=== PATIENT | female | born 1990 | race Caucasian/White ===

== ENCOUNTER 2024-05-13 09:44 | Outpatient (CLI) | payer BC, SELFPAY ==
[2024-05-15 05:23] LABS: HPV Source Cervical; HPV, High Risk by TMA Not Detected
== END 2024-05-13 09:45 | disposition home or self-care (01) ==
PROVIDERS: Visit Provider Obstetrics & Gynecology
DX: Z01.419 Encounter for gynecological examination (general) (routine) without abnormal findings (principal); Z12.4 Encounter for screening for malignant neoplasm of cervix; Z13.6 Encounter for screening for cardiovascular disorders; Z13.1 Encounter for screening for diabetes mellitus
CPT/HCPCS: 80061; 87624; 87625; 88141; 88142

== ENCOUNTER 2024-07-28 06:58 | Day surgery (SDC) | payer BC, SELFPAY ==
[2024-07-28] VITALS (7 sets, daily range): BP systolic 91–118; BP diastolic 64–79; PULSE 56–83; RESP 14–16; TEMP 36.3–36.6; O2SAT 96–100; BMI 22.9
--- OUTSIDE RECORDS SUMMARY | 2024-07-28 07:01 | XMS_ITS | Clinical Summary ---
Author Organization [facility] Address [place], [place] [address] Care Team Providers Care Coal Passer Name Role Phone [facility], [facility] Primary Care Pr ovider Allergies No known active allergies Medications No known medications Active Problems No known active problems Social History Tobacco Use Types Packs/Day Years Used Date Smoking Tobacco: Never Smokeless Tobacco: Never Tobacco Cessation:Counseling Given: Yes Alcohol Use Standard Drinks/Week Comments Not Asked 0 (1 standard drink = 0.6 oz pur e alcohol) Comments Unknown Sex and Gender Information Value Date Recorded Sex Assigned at Not on file Legal Sex Female 5:24 AM MARKETING SALES CONSULTANT Gender Identity Not on file Sexual Orientation Not on file Obstetrics History Last Filed Vital Signs Vital Sign Reading Time Taken Comments Blood Pressure 108/73 02/14/2013 11:11 AM CDT Pulse 91 02/14/2013 11:11 AM CDT Temperature 36.9 C (98.5 F) 02/14/2013 11:11 AM CDT Respiratory Rate - - Oxygen Saturation - - Inhaled Oxygen Concentration - - Weight 56.2 kg (124 lb) 02/14/2013 11:11 AM CDT Height - - Body Mass Index - - Plan of Treatment Health Maintenance Due Date Last Done Comments Tdap 2000 Depression screening for age 12+ 2001 HIV for age 15-65 2004 BMI (ht and wt on same day) for age 18+ 10/11/2007 Hepatitis C screening for age 18-79 10/11/2007 Tetanus booster 2009 Pap test for age 21-65 05/20/2022 9, 11/17/2012 (Completed outside of [facility]) COVID-19 vaccine series (2023-25 season) 2024 Influenza for age 9-49 03/20/2024 Pneumococcal series for age 6-49 Aged Out No longer eligible based on patient's age to complete this topic Procedures Procedure Name Priority Date/Time Associated Diagnosis Comments VOLUNTEER SERVICES DIRECTOR THIN PREP PAP SCREEN IMAGED Routine 05/20/2019 9:00 AM CDT from Last 3 Months or Most Recently Relevant to Health Maintenance Results * VOLUNTEER SERVICES DIRECTOR THIN PREP PAP SCREEN IMAGED (05/20/2019 9:00 AM CDT) Case Report Gynecologic Cytology Report Case: [id number] Authorizing Provider: Ciara Bermeo PA-C Collected: 05/20/2019 0900 Ordering Location: [facility] Received: 05/21/2019 0928 First Screen: Abebe Davis Specimen: VOLUNTEER SERVICES DIRECTOR ThinPrep Vial Screening, Cervical/Vaginal 06/01/2019 11:25 AM MARKETING SALES CONSULTANT [facility] INTERPRETATION/ RESULT NEGATIVE FOR INTRAEPITHELIAL LESION OR MALIGNANCY (NIL) (none) 06/01/2019 11:25 AM MARKETING SALES CONSULTANT [facility] IMEN ADEQUACY Satisfactory for evaluation No endocervical component seen 06/01/2019 11:25 AM MARKETING SALES CONSULTANT [facility] HPV REQUEST HPV if ASCUS 06/01/2019 11:25 AM MARKETING SALES CONSULTANT [facility] Last Pap Date 11/22/2012 06/01/2019 11:25 AM MARKETING SALES CONSULTANT [facility] Last Pap Result NIL 9 11:25 AM MARKETING SALES CONSULTANT [facility] Menstrual Status 06/01/2019 11:25 AM MARKETING SALES CONSULTANT [facility] Automated Review Successful 06/01/2019 11:25 AM MARKETING SALES CONSULTANT [facility] Comment:Specimen processed s uccessfully by automated printed circuit board layout designer device, ThinPrep Imaging System, [employer] Note The pap test is a screening technique, not a diagnostic procedure. It is used primarily to screen for squamous cancers and precursor lesions. Published studies have shown that it is subject to both false negative and false positive results. The pap test should not be used as the sole means to diagnose or exclude pre-malignant and malignant lesions. Cytology is screened and interpreted at [facility] - [address], [place] [address] and [facility] - [address]; [place] [address] and [facility] - [address]; [place] [address] and [facility] [address]; [place] [address] 06/01/2019 11:25 AM MARKETING SALES CONSULTANT [facility] Other (Cervical/Vagina l) 05/20/2019 9:00 AM CDT 05/21/2019 9:28 AM CDT October Jean-Claude BARRY PATHOLOGY/CYTOLOGY Final R esult [facility] [address] [place] [address], [place] from Last 3 Months or Most Recently Relevant to Health Maintenance Insurance [facility] INDEMNITY Care Teams Coal Passer Relationship Specialty Start Date End Date Clinic, [facility] [address] [place] [address] PCP - General 09/24/07
[2024-07-28 07:41] LABS: Ur HCG Qualitative* Negative (Negative)
[2024-07-28] MEDS: 0.9 % SODIUM CHLORIDE 500 ML 500 ML 100 ML IV (07:56)
--- NOTE | 2024-07-28 08:47 | W.PM.H&PU ---
History & Physical Update History & Physical Update H&P Reviewed and patient assessed: No changes noted
[2024-07-28] MEDS: CEFAZOLIN 1 GM inj IVP (08:49)
--- NOTE | 2024-07-28 08:50 | PM.GSPRC ---
Operative Note Date of procedure: 07/28/24 Pre-op diagnosis: Epigastric and umbilical hernia Post-op diagnosis: Same Type of Procedure: Open primary repair of a 1 cm epigastric hernia and a 7 mm umbilical hernia. Indications: The patient is a 33-year-old female who has had epigastric hernia for several years. She has had intermittent discomfort and it is usually reducible, however it does cause her increasing discomfort and is interfering with activities. Since she has completed childbearing, she now desires repair. Procedure Description: After discussing the risks and benefits of the procedure, the patient signed informed consent.? The operative site was marked and the patient was brought to the operating room and placed on the operating table in supine position.? Care was taken to pad the patient's pressure points.?? The patient was then given sedation by anesthesia.?? The operative site was then prepped and draped in the usual sterile fashion.? A time-out was then performed. Local anesthetic was injected into the skin and subcutaneous tissue overlying the palpable hernia. Incision was created just above the umbilicus. The patient of note had a scar from an umbilical piercing here. This was excised. The patient and I had previously discussed this. Because of the likely contamination within the tract of the piercing, Hibiclens was used then to scrub the wound before proceeding. Dissection was then taken down into the subcutaneous tissue with cautery until the hernia was encountered. A golf ball sized hernia containing preperitoneal fat was encountered. This was dissected free from the subcutaneous space circumferentially. The fascia was identified and with the patient relaxed, I was able to carefully reduce the herniated tissue. The hernia opening was examined. This measured 1 cm. Palpated above the fascia superiorly and inferiorly and did not feel any other hernia defects other than the known umbilical defect. I then turned my attention to the umbilical hernia. The umbilical stalk was dissected off of the small hernia sac. Once this was free, the preperitoneal fat was reduced and a 7 mm hernia was identified. The hernia openings were both diminutive and were 3 cm apart. Because of this I felt that I would not be able to place mesh appropriately without dividing and weakening the fascia. Therefore I elected to close both hernias primarily. The umbilical hernia was closed with interrupted 0 Nurolon suture in a [id number] fashion. The supraumbilical/epigastric hernia was repaired similarly. Once this was done, the umbilicus was tacked to the fascia using 3-0 Vicryl. The subcutaneous space was closed with interrupted 3-0 Vicryl suture. The wound was then closed with 3-0 Vicryl dermal and 4-0 Monocryl running subcuticular suture. Glue was then applied. Instrument sponge needle counts were correct at the end the case. ? The patient was then woken and transported to the recovery area in stable condition. ? The patient tolerated the procedure well. Findings: 1 cm epigastric hernia containing preperitoneal fat 0.7 cm umbilical hernia containing preperitoneal fat Anesthesia: MAC Surgeon: Elba Pollack MD Estimated blood loss (mL): 1 Condition: stable Disposition: same day
[2024-07-28] MEDS: BUPIVACAINE 0.5% 30 ML INJECTION (08:58)
--- NOTE | 2024-07-28 09:51 | P.ANES_ITS ---
Anesthesia Charges Start Date/Time Anesthesia Start Date: 07/28/24 Anesthesia Start Time: 08:41 Stop Date/Time Anesthesia Stop Date: 07/28/24 Anesthesia Stop Time: 09:52 Coding CPT Codes CPT Codes: ANESTH REPAIR OF HERNIA - 78865 ([id number]) QK - OYSTER FLOATER 2-4 CNCRNT ANES PROC, QX - MASTER BLACK BELT SVC W/ MD MED DIRECTION, P1 - NORMAL HEALTHY PATIENT
--- NOTE | 2024-07-28 09:51 | W.ANESCHARGE ---
Anesthesia Charges Start Date/Time Anesthesia Start Date: 07/28/24 Anesthesia Start Time: 08:41 Stop Date/Time Anesthesia Stop Date: 07/28/24 Anesthesia Stop Time: 09:52 Coding CPT Codes CPT Codes: ANESTH REPAIR OF HERNIA - 41664 ([id number]) QK - RECORDS MANAGEMENT DIRECTOR 2-4 CNCRNT ANES PROC, QX - INFANT AND TODDLER TEACHER SVC W/ MD MED DIRECTION, P1 - NORMAL HEALTHY PATIENT
--- NOTE | 2024-07-28 09:52 | P.ANES_ITS ---
Anesthesia Charges Start Date/Time Anesthesia Start Date: 07/28/24 Anesthesia Start Time: 08:41 Stop Date/Time Anesthesia Stop Date: 07/28/24 Anesthesia Stop Time: 09:52 Coding CPT Codes CPT Codes: ANESTH REPAIR OF HERNIA - 79931 ([id number]) P1 - NORMAL HEALTHY PATIENT, QK - PHOTOLITH OPERATOR 2-4 CNCRNT ANES PROC, QX - BAKER HELPER SVMichael W/ MED DIRECTION
--- NOTE | 2024-07-28 09:52 | W.ANESCHARGE ---
Anesthesia Charges Start Date/Time Anesthesia Start Date: 07/28/24 Anesthesia Start Time: 08:41 Stop Date/Time Anesthesia Stop Date: 07/28/24 Anesthesia Stop Time: 09:52 Coding CPT Codes CPT Codes: ANESTH REPAIR OF HERNIA - 17271 ([id number]) P1 - NORMAL HEALTHY PATIENT, QK - COMMUNITY RELATIONS MANAGER 2-4 CNCRNT ANES PROC, QX - ENGINEER BYPRODUCT SVMichael W/ MED DIRECTION
== END 2024-07-28 11:13 | disposition home or self-care (01) ==
PROVIDERS: Anesthesiology; PCP Family Medicine; Visit Provider Surgery
PROC: (CPT 49591; principal; 2024-07-28 08:30)
DX: K43.9 Ventral hernia without obstruction or gangrene (principal); K42.9 Umbilical hernia without obstruction or gangrene
CPT/HCPCS: 49591; 00750; 81025; J0665; J0690; J1100; J1630; J2405; J2704; J3010; J7030